=== PATIENT | female | born 1965 | race Caucasian/White ===

== ENCOUNTER → 2025-02-10 13:49 | Outpatient (BNVA) | payer OTHER, SELFPAY | PROVIDERS: Visit Provider Nurse Practitioner Family | DX: F41.9 Anxiety disorder, unspecified (principal); F32.A Depression, unspecified; Z90.49 Acquired absence of other specified parts of digestive tract; Z98.51 Tubal ligation status; Z98.890 Other specified postprocedural states; Z87.19 Personal history of other diseases of the digestive system; E78.5 Hyperlipidemia, unspecified; I10 Essential (primary) hypertension | CPT/HCPCS: 80053; 80061 ==

== ENCOUNTER → 2025-03-19 16:03 | Outpatient (BNVA) | payer OTHER, SELFPAY | PROVIDERS: PCP Nurse Practitioner Family; Visit Provider Nurse Practitioner Family | DX: R73.09 Other abnormal glucose (principal) | CPT/HCPCS: 83036 ==

== ENCOUNTER 2025-04-01 13:25 | Outpatient (CLI) | payer OTHER, SELFPAY ==
--- NOTE | 2025-04-01 13:32 | XRR_ITS ---
PROCEDURE INFORMATION: Exam: XR Cervical Spine Exam date and time: 04/01/2025 1:39 PM Age: 59 years old Clinical indication: Neck pain; Additional info: M99.01 - segmental and somatic dysfunction of cervical re. . . TECHNIQUE: Imaging protocol: Radiologic exam of the cervical spine. Views: 2 or 3 views. COMPARISON: CR XR shoulder LT min 2V* [id number] 04/01/2025 1:39 PM FINDINGS: Bones/joints: Normal. No acute fracture. Normal alignment. Soft tissues: Unremarkable. XR/XR cervical spine 3V* [id number] IMPRESSION: No acute findings.
--- NOTE | 2025-04-01 13:32 | XRR_ITS ---
PROCEDURE INFORMATION: Exam: XR Left Shoulder Exam date and time: 04/01/2025 1:39 PM Age: 59 years old Clinical indication: Pain; Shoulder; Left; Additional info: M25.519 - pain in unspecified shoulder TECHNIQUE: Imaging protocol: Radiologic exam of the left shoulder. Views: 2 or more views. COMPARISON: CR XR cervical spine 3V* [id number] 04/01/2025 1:39 PM FINDINGS: Bones/joints: Normal. Soft tissues: Normal. XR/XR shoulder LT min 2V* [id number] IMPRESSION: No acute findings.
== END 2025-04-01 13:26 | disposition home or self-care (01) ==
PROVIDERS: PCP Nurse Practitioner Family; Visit Provider Nurse Practitioner Family
DX: M99.01 Segmental and somatic dysfunction of cervical region (principal); M25.519 Pain in unspecified shoulder
CPT/HCPCS: 72040; 73030